=== PATIENT | female | born 1995 ===

== ENCOUNTER 2018-07-01 19:11 | Emergency (ER) | payer OTHER ==
[2018-07-01] MEDS ORDERED: Al Hydrox/Mg Hydrox/Simet LIQ* 30 ML UDC PO ONE (21:26)
[2018-07-01] MEDS ORDERED: Lidocaine 2% VISCOUS* 15 ML UDC PO ONE (21:27)
--- NOTE | 2018-07-01 21:27 | ED ---
Abdominal Pain/Female - HPI Summary HPI Summary: This patient is a 23 year old F presenting to [facility] with a chief complaint of a fluctuating abdominal pain since 14:00 today. The patient rates the pain 6/10 in severity. Patient reports nausea and feeling like I need to vomit but I can t. Patient denies vomiting, having pain like this before, and decreased appetite. Her last normal BM was this morning. - History of Current Complaint Chief Complaint: EDAbdPain Stated Complaint: ABD PAIN Time Seen by Provider: 07/01/18 21:16 Hx Obtained From: Patient Onset/Duration: Sudden Onset, Lasting Hours Timing: Constant Severity Initially: Moderate Severity Currently: Moderate Pain Intensity: 6 Pain Scale Used: 0-10 Numeric Location: Epigastric Radiates: No Associated Signs and Symptoms: Positive: Nausea - feeling like I need to vomit but I cant. Negative: Decreased Appetite, Vomiting Allergies/Adverse Reactions: Allergies Allergy/AdvReac Type Severity Reaction Status Date / Time No Known Allergies Allergy Verified 07/01/18 19:18 PMH/Surg Hx/FS Hx/Imm Hx Endocrine/Hematology History: Denies: Hx Diabetes EENT History: Denies: Hx Deafness Infectious Disease History: No Infectious Disease History: Denies: Traveled Outside the [place] in Last 30 Days - Family History Known Family History: Negative: Cardiac Disease, Diabetes - Social History Occupation: Student Alcohol Use: Weekly Review of Systems Negative: Fever Positive: Abdominal Pain - Epigastric pain that does not radiate starting at 14: 00 today, Nausea - feeling like I need to vomit but I cant . Negative: Vomiting, Other - Denies decreased appetite All Other Systems Reviewed And Are Negative: Yes Physical Exam - Summary Physical Exam Summary: VITAL SIGNS: Reviewed. GENERAL: Patient is a well-developed and nourished FEMALE who is lying comfortable in the stretcher. Patient is not in any acute respiratory distress. HEAD AND FACE: No signs of trauma. No ecchymosis, hematomas or skull depressions. No sinus tenderness. EYES: PERRLA, EOMI x 2, No injected conjunctiva, no nystagmus. EARS: Hearing grossly intact. Ear canals and tympanic membranes are within normal limits. MOUTH: Oropharynx within normal limits. NECK: Supple, trachea is midline, no adenopathy, no JVD, no carotid bruit, no c- spine tenderness, neck with full ROM. CHEST: Symmetric, no tenderness at palpation LUNGS: Clear to auscultation bilaterally. No wheezing or crackles. CVS: Regular rate and rhythm, S1 and S2 present, no murmurs or gallops appreciated. ABDOMEN: Epigastric tenderness. Soft. No signs of distention. No rebound no guarding, and no masses palpated. Bowel sounds are normal. EXTREMITIES: FROM in all major joints, no edema, no cyanosis or clubbing. NEURO: Alert and oriented x 3. No acute neurological deficits. Speech is normal and follows commands. SKIN: Dry and warm Triage Information Reviewed: Yes Vital Signs On Initial Exam: Initial Vitals Temp Pulse Resp BP Pulse Ox 99 F 77 16 135/78 99 07/01/18 19:16 07/01/18 19:16 07/01/18 19:16 07/01/18 19:16 07/01/18 19:16 Vital Signs Reviewed: Yes Diagnostics - Vital Signs Vital Signs Temp Pulse Resp BP Pulse Ox 07/01/18 19:16 99 F 77 16 135/78 99 - Laboratory Result Diagrams: 07/01/18 21:36 07/01/18 21:36 Lab Statement: Any lab studies that have been ordered have been reviewed, and results considered in the medical decision making process. Re-Evaluation - Re-Evaluation 1 Re-Evaluation Time: 22:30 Change: Improved - Patient is feeling better and can be d/c home. Abdominal Pain Fem Course/Dx - Course Course Of Treatment: This patient is a 23 year old F presenting to [facility] with a chief complaint of a fluctuating abdominal pain since 14:00 today. The patient rates the pain 6/10 in severity. Patient reports nausea and feeling like I need to vomit but I cant. Patient denies vomiting, having pain like this before, and decreased appetite. Her last normal BM was this morning. Patient began to feel better and will be d/c with a dx of gastritis. She has been instructed to follow up with the [facility] in 1-2 days. - Diagnoses Provider Diagnoses: Gastritis Discharge - Sign-Out/Discharge Documenting (check all that apply): Patient Departure - D/C - Discharge Plan Condition: Stable Disposition: HOME Prescriptions: Pantoprazole TAB (NF) [Protonix TAB (NF)] 40 mg PO DAILY #30 tab Patient Education Materials: Gastritis (ED) Referrals: No Primary Care Phys,NOPCP [Primary Care Provider] - (Follow up with [facility] in 1-2 days. ) Additional Instructions: RETURN TO THE EMERGENCY DEPARTMENT FOR CHANGING OR WORSENING SYMPTOMS. FOLLOW UP WITH PCP IN 1-2 DAYS. - Attestation Statements Document Initiated by Scribe: Yes Documenting Scribe: Chavez Hackett Provider For Whom Scribe is Documenting (Include Credential): Armani Abreu MD Scribe Attestation: IChavez, scribed for Armani Abreu MD on 07/01/18 at [id number].
[2018-07-01 21:44] LABS: ABS Basophils 0.1 10^3/ul (0-0.2); ABS Eosinophils 0.1 10^3/ul (0-0.6); ABS Lymphocytes 1.7 10^3/ul (1.0-4.8); ABS Monocytes 0.4 10^3/ul (0-0.8); ABS Neutrophils 4.2 10^3/ul (1.5-7.7); ABS Nucleated RBC 0 10^3/ul; Eosinophil % 1.4 % (0-6); Hematocrit 39 % (35-47); Lymphocyte % 26.1 % (25-47); Mean Corpuscular HGB Conc 34 g/dl (31-36); Mean Corpuscular Hemoglobin 30 pg (27-31); Mean Corpuscular Volume 89 fL (80-97); Mean Platelet Volume 8.3 um3 (7.4-10.4); Nucleated Red Blood Cells % 0.1; Platelet Count 182 10^3/ul (150-450); Red Blood Count 4.34 10^6/ul (4.00-5.40); Red Cell Distribution Width 14 % (10.5-15); White Blood Count 6.5 10^3/ul (3.5-10.8)
[2018-07-01 22:20] LABS: EGFR Non-African American 144.2 (>60)
[2018-07-01 22:47] LABS: Urine Appearance Clear; Urine Blood Negative (Negative); Urine Color Yellow; Urine Ketones 1+ (Negative); Urine Protein Negative (Negative); Urine Specific Gravity 1.013 (1.010-1.030); Urine Urobilinogen Negative (Negative)
[2018-07-02 00:16] VITALS: BP 123/81
== END 2018-07-02 00:16 | disposition home or self-care (01) ==
LOC: EDBD → ED 19:11
DX: K29.70 Gastritis, unspecified, without bleeding (principal); R11.0 Nausea; R10.9 Unspecified abdominal pain
CPT/HCPCS: 36415; 80053; 81003; 83690; 83735; 84702; 85025; 86140; 99283; A9270-GY